=== PATIENT | male | born 1935 | race Caucasian/White ===

== ENCOUNTER → 2020-01-20 | Outpatient (CLI) | payer SELFPAY ==
[~2020-01-20] MED LIST: ATOR80TA59 PO; BRIMONIDINE TARTRATE OS; CENTTAB47 PO; ECOT81TA5 PO; EQUATE STOOL SOFTNER PO; LISI-538 PO; LISI20TA35 PO; PREDOPD OS; SENO8.6T5 PO; [UNRECOGNIZED DRUG - OTHER] OU
== END ==
LOC: M LABSMTC 10:44
PROVIDERS: ATTEND Pediatrics
DX: Z20.828 Contact with and (suspected) exposure to other viral communicable diseases (principal)

== ENCOUNTER → 2021-09-25 | Outpatient (CLI) | payer MEDICARE, OTHER ==
[~2021-09-25] MED LIST changes: -LISI-538 PO; +LISI20TA33 PO
[2021-09-25 13:20] LABS: PLATELET COUNT, AUTOMATED 261 10^3/uL (150-450)
[2021-09-25 13:41] LABS: INR 0.89; PROTHROMBIN TIME 12.4 SECONDS (12.7-14.5)
[2021-09-25 13:42] LABS: PARTIAL THROMBOPLASTIN TIME 24.7 SECONDS (25.9-37.0)
== END ==
LOC: M LAB 12:04
PROVIDERS: ATTEND Physician Assistant
DX: M51.36 Other intervertebral disc degeneration, lumbar region (principal)

== ENCOUNTER → 2023-12-04 | Outpatient (REF) | payer MEDICARE, OTHER | LOC: M LABSMT 10:24 | PROVIDERS: ATTEND Urology | DX: Z85.46 Personal history of malignant neoplasm of prostate (principal) ==